=== PATIENT | female | born 1950 | race Caucasian/White ===

== ENCOUNTER 2023-10-30 07:01 | Day surgery (SDC) | payer MEDICARE, OTHER, SELFPAY ==
[2023-10-17 15:47] VITALS: BMI 29.8
--- NOTE | 2023-10-26 14:20 | HO.ANESPROP2 ---
HPI - Anesthesia Eval Consult details Narrative: 73yo F for Right Cataract Extraction IOL Insertion No previous cataract PMFSH Past Medical History Medical History Aortic valve sclerosis Cataracts, bilateral Sinus bradycardia HLD (hyperlipidemia) HTN (hypertension) Rosacea Depression Osteopenia Surgical History Surgical History History of dental surgery Hx of tubal ligation Hx of colonoscopy Social History Social History Household Members: Spouse Patient Tobacco Use Status: Former Tobacco user Tobacco use type: Cigarette Smoked in Last 30 Days: No Are you DNR?: No Advance Directives: No Advance Directives Information Provided: Yes Advance Directives on File: No Meds Allergies Allergy/AdvReac Type Severity Reaction Status Date / Time No Known Allergies Allergy Verified 10/30/23 08:09 Home Medications ?Medication ?Instructions ?Recorded ?Confirmed ?Last Taken ?Type amlodipine 5 mg tablet 5 mg PO DAILY 10/17/23 10/17/23 10/30/23 History atorvastatin 10 mg tablet 10 mg PO DAILY 10/17/23 10/17/23 Unknown History azelaic acid 15 % topical gel 1 appl topical BID 10/17/23 10/17/23 Unknown History (Finacea) fluoxetine 40 mg capsule 40 mg PO DAILY 10/17/23 10/17/23 10/30/23 History hydrochlorothiazide 25 mg tablet 25 mg PO DAILY 10/17/23 10/17/23 Unknown History lisinopril 10 mg tablet 10 mg PO DAILY 10/17/23 10/17/23 Unknown History propylene glycol 0.6 % eye drops 1 drp ophthalmic (eye) BID PRN Dry 10/17/23 10/17/23 Unknown History (Systane Balance) Eye(S) Exam Height,Weight and Vital Signs: Height 5 ft 2.2 in Weight 74.5 kg Assessment and Plan Assessment Anesthesia Assessment: Chart Reviewed
[2023-10-30] MEDS: Phenylephrine HCL 2.5% Oph SoL 2 ML BOTTLE 1 DROP EYE-RIGHT ×3 (07:53→08:02)
[2023-10-30] MEDS: Lactated Ringers 500 ML 50 ML IV (07:53)
[2023-10-30] MEDS: Cyclopentolate 1 % Ophth Sol 2 ML DRPBTL 1 DROP EYE-RIGHT ×3 (07:53→08:02)
[2023-10-30] MEDS: Tetracaine HCl/PF 0.5% Oph Sol 4 ML DROPS 1 DROP EYE-RIGHT (07:53)
[2023-10-30] MEDS: Ketorolac Tromethamine 0.5% Op 10 ML DROPS 1 DROP EYE-RIGHT ×3 (07:54→08:05)
[2023-10-30] MEDS: Tropicamide 1 % Ophth Sol 3 ML BTL 1 DROP EYE-RIGHT ×3 (07:54→08:05)
[2023-10-30 08:08] VITALS: BP 158/68; PULSE 57; RESP 18; TEMP 36.7; O2SAT 97
--- NOTE | 2023-10-30 08:23 | P.CONAN_ITS ---
FORM[facility]LY [facility] Past Medical History Medical History Aortic valve sclerosis Cataracts, bilateral Sinus bradycardia HLD (hyperlipidemia) HTN (hypertension) Rosacea Depression Osteopenia Functional capacity: independent ambulation Patient : No Family History Family history of problems with anesthesia: No Surgical History Surgical History History of dental surgery Hx of tubal ligation Hx of colonoscopy History of Problems with Anesthesia: No Social History Social History Household Members: Spouse Patient Tobacco Use Status: Former Tobacco user Tobacco use type: Cigarette Smoked in Last 30 Days: No Advance Directives: No Advance Directives Information Provided: Yes Advance Directives on File: No Meds Allergies Allergy/AdvReac Type Severity Reaction Status Date / Time No Known Allergies Allergy Verified 10/30/23 08:09 Active Medications: Current Medications Lactated Ringer's (Lr) 500 mls @ 50 mls/hr IV .Q10H AMBERLY Stop: 10/30/23 17:44 Last Admin: 10/30/23 07:53 Dose: 50 mls/hr Povidone Iodine (Povidone Iodine 5 % Ophth Soln 30 Ml Bottle) 1 appl EYE-RIGHT PREOP PRN PRN Reason: Pre-Op Surgical Implant Prophy Home Medications ?Medication ?Instructions ?Recorded ?Confirmed ?Last Taken ?Type amlodipine 5 mg tablet 5 mg PO DAILY 10/17/23 10/17/23 10/30/23 History atorvastatin 10 mg tablet 10 mg PO DAILY 10/17/23 10/17/23 Unknown History azelaic acid 15 % topical gel 1 appl topical BID 10/17/23 10/17/23 Unknown History (Finacea) fluoxetine 40 mg capsule 40 mg PO DAILY 10/17/23 10/17/23 10/30/23 History hydrochlorothiazide 25 mg tablet 25 mg PO DAILY 10/17/23 10/17/23 Unknown History lisinopril 10 mg tablet 10 mg PO DAILY 10/17/23 10/17/23 Unknown History propylene glycol 0.6 % eye drops 1 drp ophthalmic (eye) BID PRN Dry 10/17/23 10/17/23 Unknown History (Systane Balance) Eye(S) Exam Height,Weight and Vital Signs: Height 5 ft 2.2 in Weight 74.5 kg Last Vital Signs Temp 98.0 F 10/30/23 08:08 Pulse 57 10/30/23 08:08 Resp 18 10/30/23 08:08 BP 158/68 H 10/30/23 08:08 Pulse Ox 97 10/30/23 08:08 O2 Del Method Room Air 10/30/23 08:08 Airway Mallampati Class: II TM Dist: >3cm Neck ROM: Full Heart: RRR Lungs: CTA Assessment and Plan Assessment Anesthesia Assessment: Anesthesia Plan Discussed and Chart Reviewed Final Anesthetic Review Family History of Problems with Anesthesia: No History of Problems with Anesthesia: No ASA Class: II Final Preanesthetic Review: Meds/Allgs Chart Reviewed, Consent Obtained/Reviewed and Anes Risks/Benef Reviewed Patient Risk: Low Procedure Risk: Low Anesthetic Plan Anesthetic Plan: MAC: Disposition: Standard PACU
--- NOTE | 2023-10-30 08:28 | HO.POSTANES ---
Post Anesthesia Evaluation Post Anesthesia Evaluation Date of Service: 10/30/23 Vital Signs: Vital Signs Temp Pulse Resp BP Pulse Ox O2 Del Method 10/30/23 08:08 98.0 F 57 18 158/68 H 97 Room Air Anesthesia: Monitored Mental Status: Awake Pain Control: Satisfactory Nausea/Vomiting: None Hydration: Adequate Anesthesia-Related Issues: No Anes. Related Issues
--- NOTE | 2023-10-30 08:58 | MHC.SHP ---
Pre-Procedural Eval Section A - 24 Hr Update-Section A only Date of Service: 10/30/23 The patient is an INPATIENT: No Changes since office visit: No Cold of Flu in the past 2 weeks, No New Medical Problems, No Changes in Medication and No Patient answered all questions The patient has been examined within 24 hours of the surgical procedure. The History & Physical has been completed within 30 days and I have reviewed it.: Yes Section B - Complete if H&P > 30 days Chief Complaint: Age-related nuclear cataract, right eye Allergies: Allergies Allergy/AdvReac Type Severity Reaction Status Date / Time No Known Allergies Allergy Verified 10/30/23 08:09 Plan Diagnosis/Plan: Unchanged I have reviewed the history and physical and performed a pertinent physical examination on my patient. No changes have occurred unless specified. Time Spent With Patient Time: Total time managing care of this patient today ____ minutes.
--- NOTE | 2023-10-30 08:59 | P.PCNO_ITS ---
Ophthalmology Procedure Procedure Date of Service: 10/30/23 Ophthalmology Viscoelastic: Healon Duet Dual Pack Pro Ophthalmology Lenses: IOL Acrysof MP - MA60AC (21.5) Procedure Notes: PREOPERATIVE DIAGNOSIS: Decreased visual acuity right eye secondary to cataract POSTOPERATIVE DIAGNOSIS: Same PROCEDURE: Right cataract extraction with intraocular lens insertion SURGEON: Harmeet Owens M.D. ANESTHESIA: Topical/MAC ESTIMATED BLOOD LOSS: None COMPLICATIONS: None After obtaining informed consent, the patient was brought to the operating room suite and placed in the supine position. After adequate sedation per anesthesia, topical drops of Tetracaine were given to the right eye. The eye was then prepped and draped in the usual sterile fashion. The operating room microscope was then positioned over the operative eye and a lid speculum placed. A paracentesis was created. Viscoelastic was then instilled into the anterior chamber. A three plane incision was then created temporally, utilizing a 2.85 mm keratome. Capsulotomy forceps were then utilized to create a circular tear capsulotomy. Hydrodissection and hydrodelineation were carried out until adequate mobilization of the nucleus occurred. Phacoemulsification was then utilized to remove the dense central nu cleus followed by removal of the cortical material utilizing the automated aspiration irrigation unit. Viscoelastic was instilled into the posterior capsular bag followed by placement of a posterior chamber intraocular lens without difficulty. The residual Viscoelastic was then removed utilizing the automated IA machine. The wound was checked and found to be watertight. The patient tolerated the procedure well and the lid speculum was removed. Intracameral injection of Vigamox 0.1 mL followed by a subtenon injection of Kenalog-40 0.2 mL were administered. The patient will be seen in the a.m.
[2023-10-30 09:34] VITALS: BP 161/74; PULSE 53; RESP 17; TEMP 36.1; O2SAT 98
== END 2023-10-30 09:40 | disposition home or self-care (01) ==
PROVIDERS: PCP Family Medicine; Visit Provider Ophthalmology
PROC: (CPT 66985; principal; 2023-10-30 08:50)
DX: H25.11 Age-related nuclear cataract, right eye (principal); H52.4 Presbyopia; Z83.511 Family history of glaucoma; H43.399 Other vitreous opacities, unspecified eye; H18.413 Arcus senilis, bilateral; I10 Essential (primary) hypertension; E78.00 Pure hypercholesterolemia, unspecified; Z79.899 Other long term (current) drug therapy; Z87.891 Personal history of nicotine dependence
CPT/HCPCS: 66984; J2250; J3301; V2630

== ENCOUNTER 2023-11-13 06:15 | Day surgery (SDC) | payer MEDICARE, OTHER, SELFPAY ==
[2023-10-17 15:51] VITALS: BMI 29.8
--- NOTE | 2023-11-09 14:24 | P.CONAN_ITS ---
Documented by User: Ila Fuller NP 11/09/23 14:25 HPI - Anesthesia Eval Consult details Narrative: 73yo F for Left Cataract Extraction IOL Insertion Right eye 10/30/23: Midaz 2 PMFSH Past Medical History Medical History Bilateral cataracts Aortic valve sclerosis Cataracts, bilateral Sinus bradycardia HLD (hyperlipidemia) HTN (hypertension) Rosacea Depression Osteopenia Family History Family history of problems with anesthesia: No Surgical History Surgical History History of dental surgery Hx of tubal ligation Hx of colonoscopy History of Problems with Anesthesia: No Social History Social History Household Members: Spouse Patient Tobacco Use Status: Former Tobacco user Tobacco use type: Cigarette Smoked in Last 30 Days: No Are you DNR?: No Advance Directives: No Advance Directives Information Provided: Yes Advance Directives on File: No Meds Allergies Allergy/AdvReac Type Severity Reaction Status Date / Time No Known Allergies Allergy Verified 10/30/23 08:09 Home Medications ?Medication ?Instructions ?Recorded ?Confirmed ?Last Taken ?Type amlodipine 5 mg tablet 5 mg PO DAILY 10/17/23 10/17/23 11/13/23 History atorvastatin 10 mg tablet 10 mg PO DAILY 10/17/23 10/17/23 Unknown History azelaic acid 15 % topical gel 1 appl topical BID 10/17/23 10/17/23 Unknown History (Finacea) fluoxetine 40 mg capsule 40 mg PO DAILY 10/17/23 10/17/23 10/30/23 History hydrochlorothiazide 25 mg tablet 25 mg PO DAILY 10/17/23 10/17/23 Unknown History lisinopril 10 mg tablet 10 mg PO DAILY 10/17/23 10/17/23 Unknown History propylene glycol 0.6 % eye drops 1 drp ophthalmic (eye) BID PRN Dry 10/17/23 10/17/23 Unknown History (Systane Balance) Eye(S) Exam Height,Weight and Vital Signs: Height 5 ft 2.2 in Weight 74.5 kg Assessment and Plan Final Anesthetic Review Family History of Problems with Anesthesia: No History of Problems with Anesthesia: No Documented by User: Nasima Orellana MD 11/13/23 07:45 [facility] Past Medical History Medical History Bilateral cataracts Aortic valve sclerosis Cataracts, bilateral Sinus bradycardia HLD (hyperlipidemia) HTN (hypertension) Rosacea Depression Osteopenia Surgical History Surgical History History of dental surgery Hx of tubal ligation Hx of colonoscopy Social History Social History Household Members: Spouse Patient Tobacco Use Status: Former Tobacco user Tobacco use type: Cigarette Smoked in Last 30 Days: No Are you DNR?: No Advance Directives: No Advance Directives Information Provided: Yes Advance Directives on File: No Meds Allergies Allergy/AdvReac Type Severity Reaction Status Date / Time No Known Allergies Allergy Verified 10/30/23 08:09 Home Medications ?Medication ?Instructions ?Recorded ?Confirmed ?Last Taken ?Type amlodipine 5 mg tablet 5 mg PO DAILY 10/17/23 10/17/23 11/13/23 History atorvastatin 10 mg tablet 10 mg PO DAILY 10/17/23 10/17/23 Unknown History azelaic acid 15 % topical gel 1 appl topical BID 10/17/23 10/17/23 Unknown History (Finacea) fluoxetine 40 mg capsule 40 mg PO DAILY 10/17/23 10/17/23 10/30/23 History hydrochlorothiazide 25 mg tablet 25 mg PO DAILY 10/17/23 10/17/23 Unknown History lisinopril 10 mg tablet 10 mg PO DAILY 10/17/23 10/17/23 Unknown History propylene glycol 0.6 % eye drops 1 drp ophthalmic (eye) BID PRN Dry 10/17/23 10/17/23 Unknown History (Systane Balance) Eye(S) Exam Airway Mallampati Class: II TM Dist: >3cm Neck ROM: Full Denture: Upper Partial: Lower Loose/Missing/Broken Teeth: Yes, Upper and Lower Heart: RRR Lungs: CTA Assessment and Plan Assessment Anesthesia Assessment: Anesthesia Plan Discussed and Chart Reviewed Final Anesthetic Review NPO: Yes ASA Class: III Final Preanesthetic Review: Meds/Allgs Chart Reviewed, Consent Obtained/Reviewed and Anes Risks/Benef Reviewed Patient Risk: Intermediate Procedure Risk: Low Anesthetic Plan Anesthetic Plan: MAC: Disposition: Standard PACU
[2023-11-13 06:59] VITALS: BP 141/80; PULSE 51; RESP 16; TEMP 36.2; O2SAT 96
[2023-11-13] MEDS: Lactated Ringers 500 ML 50 ML IV (07:10)
[2023-11-13] MEDS: Tetracaine HCl/PF 0.5% Oph Sol 4 ML DROPS 1 DROP EYE-LEFT (07:10)
[2023-11-13] MEDS: Cyclopentolate 1 % Ophth Sol 2 ML DRPBTL 1 DROP EYE-LEFT ×3 (07:11→07:17)
[2023-11-13] MEDS: Tropicamide 1 % Ophth Sol 3 ML BTL 1 DROP EYE-LEFT ×3 (07:12→07:18)
[2023-11-13] MEDS: Ketorolac Tromethamine 0.5% Op 10 ML DROPS 1 DROP EYE-LEFT ×3 (07:14→07:18)
[2023-11-13] MEDS: Phenylephrine HCL 2.5% Oph SoL 2 ML BOTTLE 1 DROP EYE-LEFT ×3 (07:15→07:19)
--- NOTE | 2023-11-13 07:54 | MHC.SHP ---
Pre-Procedural Eval Section A - 24 Hr Update-Section A only Date of Service: 11/13/23 The patient is an INPATIENT: No Changes since office visit: No Cold of Flu in the past 2 weeks, No New Medical Problems, No Changes in Medication and No Patient answered all questions The patient has been examined within 24 hours of the surgical procedure. The History & Physical has been completed within 30 days and I have reviewed it.: Yes Section B - Complete if H&P > 30 days Chief Complaint: Age-related nuclear cataract, left eye Allergies: Allergies Allergy/AdvReac Type Severity Reaction Status Date / Time No Known Allergies Allergy Verified 10/30/23 08:09 Plan Diagnosis/Plan: Unchanged I have reviewed the history and physical and performed a pertinent physical examination on my patient. No changes have occurred unless specified. Time Spent With Patient Time: Total time managing care of this patient today ____ minutes.
--- NOTE | 2023-11-13 07:55 | HO.PNOPHT ---
Ophthalmology Procedure Procedure Date of Service: 11/13/23 Ophthalmology Viscoelastic: Healon Duet Dual Pack Pro Ophthalmology Lenses: IOL Acrysof MP - MA60AC (22) Procedure Notes: PREOPERATIVE DIAGNOSIS: Decreased visual acuity left eye secondary to cataract POSTOPERATIVE DIAGNOSIS: Same PROCEDURE: Left cataract extraction with intraocular lens insertion SURGEON: Harmeet Owens M.D. ANESTHESIA: Topical/MAC ESTIMATED BLOOD LOSS: None COMPLICATIONS: None After obtaining informed consent, the patient was brought to the operation room suite and placed in the supine position. After adequate sedation per anesthesia, topical drops of Tetracaine were given to the left eye. The eye was then prepped and draped in the usual sterile fashion. The operating room microscope was then positioned over the operative eye and a lid speculum placed. A paracentesis was created. Viscoelastic was then instilled into the anterior chamber. A three plane incision was then created temporally, utilizing a 2.85 mm keratome. Capsulotomy forceps were then utilized to create a circular tear capsulotomy. Hydrodissection and hydrodelineation were carried out until adequate mobilization of the nucleus occurred. Phacoemulsification was then utilized to remove the dense central nucleus followed by removal of the cortical material utilizing the automated aspiration irrigation unit. Viscoat elastic was instilled into the posterior capsular bag followed by placement of a posterior chamber intraocular lens without difficulty. The residual Viscoat elastic was then removed utilizing the automated IA machine. The wound was check and found to be watertight. The patient tolerated the procedure well and the lid speculum was removed. Intracameral injection of Vigamox 0.1 mL followed by a subtenon injection of Kenalog-40 0.2 mL were administered. The patient will be seen in the a.m.
[2023-11-13 08:21] VITALS: BP 146/71; PULSE 54; RESP 18; TEMP 36.4; O2SAT 96
== END 2023-11-13 08:31 | disposition home or self-care (01) ==
PROVIDERS: PCP Family Medicine; Visit Provider Ophthalmology
PROC: (CPT 66985; principal; 2023-11-13 08:00)
DX: H25.12 Age-related nuclear cataract, left eye (principal); H52.4 Presbyopia; Z83.511 Family history of glaucoma; H35.362 Drusen (degenerative) of macula, left eye; H43.393 Other vitreous opacities, bilateral; H18.413 Arcus senilis, bilateral; I10 Essential (primary) hypertension; Z79.899 Other long term (current) drug therapy; Z87.891 Personal history of nicotine dependence
CPT/HCPCS: 66984; J2250; J3301; V2630